=== PATIENT | male | born 1990 | race Caucasian/White ===

== ENCOUNTER 2016-05-20 12:28 | Emergency (ER) | payer OTHER ==
[2016-05-20 12:37] VITALS: BP 106/66; PULSE 93; RESP 16; TEMP 98.2; O2SAT 95
--- NOTE | 2016-05-20 13:23 | UCPHY ---
H & P Time Seen by Provider: 05/20/16 12:41 Patient Type: New HPI/ROS: This patient presents with a chief complaint of foreign body sensation in his right index finger tip acute he accidentally stuck himself with a splinter just prior to arrival. Smoking Status: Current every day smoker Physical Exam: There is a small puncture wound to the radial side of the tip of the right index finger. There is a palpable mass present on the ulnar side of volar fat pad which presumably represents a foreign body. Constitutional: Initial Vital Signs Temperature (C) 36.8 C 05/20/16 12:30 Heart Rate 93 05/20/16 12:30 Respiratory Rate 16 05/20/16 12:30 Blood Pressure 106/66 05/20/16 12:30 O2 Sat (%) 95 05/20/16 12:30 O2 Delivery Mode Room Air Allergies/Adverse Reactions: No Known Allergies Allergy (Unverified 05/20/16 12:38) Home Medications: Medication Instructions Recorded NK [No Known Home Meds] 05/20/16 Medical Decision Making Procedures: A digital block was applied using 0.5% Marcaine without epinephrine. The puncture wound on the radial side was enlarged and extended towards the ulnar side. The wound was probed and 2 small wooden foreign bodies were removed. It is not clear if remains of the splinter are still present. The wound was cleansed and dressed the patient was advised to return if foreign body sensation persists. Departure - Departure Disposition: Home, Routine, Self-Care Clinical Impression: Foreign body (FB) in soft tissue Condition: Good Instructions: Soft Tissue Foreign Body (ED) Additional Instructions: If you continue to have a sensation of a foreign body in your finger after 3 days you should return. Soak your finger in warm to hot water several times daily. Keep it covered to help prevent infection. If you notice spreading redness, swelling, increasing pain and tenderness or elisa pus you should return immediately since these findings frequently indicate infection. It usually takes 3 days from the time of injury for an infection to begin. Adult Pain & Fever Control: We recommend Acetaminophen (Tylenol) and Ibuprofen (Motrin, Advil) for pain and fever control. When fever is high or pain severe, both drugs can be used at the same time, but at different intervals. Please note the time differences. Your dose is: Acetaminophen [650]mg every 4 to 6 hours ibuprofen [600]mg every [6] hours with food OR naproxen Sodium (Aleve) [440]mg every 12 hours. Note: do not take Acetaminophen with Hydrocodone (Vicodin, Lortab) or Oxycodone (Percocet). These medications also contain Acetaminophen. No more than 3000 mg of Acetaminophen should be taken in 24 hours (for an adult) . The maximal dose of ibuprofen that it is safe in a 24-hour period is 2400 mg. You may take 400 mg every 4 hours, 600 mg every 6 hours or 800 mg every 8 hours safely. Referrals: NONE *PRIMARY CARE P,. [Primary Care Provider] - As per Instructions - PQRS PQRS Measurement: Not applicable
== END 2016-05-20 13:30 | disposition home or self-care (01) ==
LOC: CED 12:28
PROC: 0HCFXZZ Extirpation of Matter from Right Hand Skin, External Approach (ICD-10-PCS; principal; 2016-05-20)
DX: S60.450A Superficial foreign body of right index finger, initial encounter (principal); X58.XXXA Exposure to other specified factors, initial encounter
CPT/HCPCS: 20552-PO; 99202-PO; G0463-PO